=== PATIENT | male | born 1975 | race Caucasian/White ===

== ENCOUNTER 2022-09-01 17:00 | Emergency (ER) | payer OTHER, SELFPAY ==
--- NOTE | ~2022-09-01 | XR_ITS ---
EXAM: XR abdomen/kub 1V DATE: 09/01/2022 17:49 HISTORY: diarrhea . COMPARISON: None available. FINDINGS: Clear lung bases. Normal bowel gas pattern. No organomegaly. No abnormal abdominal calcifi cation. Regional bones and soft tissues normal for age. IMPRESSION: No radiographic evidence of obstruction or ileus. Reviewed, dictated and finalized at location K.
[2022-09-01 17:19] VITALS: BP 142/86; PULSE 91; RESP 18; TEMP 36.6; O2SAT 97
--- NOTE | 2022-09-01 17:23 | ED.GENADULT ---
HPI - General Adult General Chief complaint: Nausea/Vomiting/Diarrhea Stated complaint: diarrhea Time Seen by Provider: 09/01/22 17:23 Source: patient Mode of arrival: ambulatory Limitations: no limitations History of Present Illness HPI narrative: 47-year-old male patient [facility] complain of diarrhea for the last 5 days. Patient states he thinks he might have been some pain sec of causing diarrhea. patient denies any fevers, body aches or chills. Denies abdominal pain. Denies vomiting. Patient still able to take in food and stay hydrated. Patient urinating normally. Patient states that the diarrhea was getting better last couple days but felt like it was worse today. Denies denies any blood in the stool Related Data Home Medications Medication Instructions Recorded Confirmed atorvastatin 40 mg tablet (Lipitor) 40 mg PO DAILY 07/25/22 09/01/22 cetirizine 10 mg tablet (Zyrtec) 10 mg PO DAILY 07/25/22 09/01/22 montelukast 10 mg tablet 10 mg PO DAILY 07/25/22 09/01/22 (Singulair) omeprazole 40 mg capsule,delayed 40 mg PO DAILY 07/25/22 09/01/22 release Allergies Allergy/AdvReac Type Severity Reaction Status Date / Time No Known Allergies Allergy Verified 09/01/22 17:22 Review of Systems Review of Systems: CONSTITUTIONAL: Denies fever, chills, or sweats. EYES: Denies visual changes, redness, or discharge. ENT: Denies rhinorrhea, congestion, sore throat, or otalgia. CARDIOVASCULAR: Denies chest pain, palpitations, or edema. RESPIRATORY: Denies cough or dyspnea. GASTROINTESTINAL: Denies abdominal pain, nausea, vomiting, denies diarrhea. GENITOURINARY: Denies dysuria or hematuria. SKIN: Denies rash or itching. MUSCULOSKELETAL: Denies back pain, joint pain, or myalgia. NEUROLOGIC: Denies headache, numbness, or weakness. PSYCHIATRIC: Denies anxiety or depression. [facility] Past Medical History Medical History Family history of colon cancer Gastritis GERD (gastroesophageal reflux disease) History of adenomatous polyp of colon Hx of hemorrhoids Left-sided chest pain Obesity (BMI 30.0-34.9) Tobacco abuse Upper abdominal pain Social History Social History Smoking status: Current every day smoker Comments At the time of my signature I agree with nursing past medical history, surgical, social, and family history. There is no relevant family history pertinent to the presenting complaint. Exam Narrative: GENERAL: Well-appearing, well-nourished, and in no acute distress. HEAD: Normocephalic, atraumatic. EYES: PERRLA and EOMI. ENT: Nares clear, no rhinorrhea or epistaxis. Mucous membranes moist. NECK: Supple. No lymphadenopathy CHEST: Clear to auscultation. No respiratory distress. HEART: Regular rate and rhythm. No murmur heard. Normal peripheral pulses. ABDOMEN: Soft, flat, nondistended. No guarding, rebound tenderness, or rigid. No pulsatilla masses. hyperactiveBowel sounds present in all four quadrants. No organomegaly. Negative Adams?s sign. No periumbicial tenderness. No Supra public tenderness or distension. Good femoral pulses bilaterally. No hernia noted. No scars or surface trauma. EXTREMITIES: Normal range of motion. No edema. SKIN: Warm, dry, no rash. NEURO: No focal deficits. Alert and oriented x3. Course Course Level of Care: [facility] Visit Vital Signs Vital signs: Vital Signs Temperature 36.6 C 09/01/22 17:19 Pulse Rate 91 09/01/22 17:19 Respiratory Rate 18 09/01/22 17:19 Blood Pressure 142/86 H 09/01/22 17:19 Pulse Oximetry 97 09/01/22 17:19 Oxygen Delivery Room Air 09/01/22 17:19 Temperature 36.6 C 09/01/22 17:19 Pulse Rate 91 09/01/22 17:19 Respiratory Rate 18 09/01/22 17:19 Blood Pressure 142/86 H 09/01/22 17:19 Pulse Oximetry 97 09/01/22 17:19 Oxygen Delivery Room Air 09/01/22 17:19 Vital
== END 2022-09-01 18:08 | disposition home or self-care (01) ==
PROVIDERS: Emergency Provider Nurse Practitioner Family
DX: K52.9 Noninfective gastroenteritis and colitis, unspecified (principal); K21.9 Gastro-esophageal reflux disease without esophagitis; E66.9 Obesity, unspecified; Z68.30 Body mass index [BMI] 30.0-30.9, adult; F17.200 Nicotine dependence, unspecified, uncomplicated
CPT/HCPCS: 74018; 81003; 99213; G0463

== ENCOUNTER 2023-03-27 15:26 | Emergency (ER) | payer OTHER, SELFPAY ==
[2023-03-27 15:32] VITALS: BP 137/80; PULSE 85; RESP 18; TEMP 36.5; O2SAT 98
--- NOTE | 2023-03-27 15:41 | ED.GENADULT ---
HPI - General Adult General Chief complaint: Skin/Abscess/Foreign Body Stated complaint: Leg Irritation/Bump Source: patient, RN notes reviewed and old records reviewed Mode of arrival: ambulatory Limitations: no limitations History of Present Illness HPI narrative: 47-year-old male presents to [facility] with complaints bump to go left leg that he noted yesterday. Patient states of patient care follow up open up and drained. Related Data Home Medications Medication Instructions Recorded Confirmed atorvastatin 40 mg tablet (Lipitor) 40 mg PO DAILY 07/25/22 09/01/22 cetirizine 10 mg tablet (Zyrtec) 10 mg PO DAILY 07/25/22 09/01/22 montelukast 10 mg tablet 10 mg PO DAILY 07/25/22 09/01/22 (Singulair) omeprazole 40 mg capsule,delayed 40 mg PO DAILY 07/25/22 09/01/22 release Allergies Allergy/AdvReac Type Severity Reaction Status Date / Time No Known Allergies Allergy Verified 09/01/22 17:22 Review of Systems Constitutional: Constitutional: Reports no additional constitutional complaints, Denies body ache(s), Denies chills, Denies fatigue, Denies fever(s) and Denies headache(s) Eyes: Eyes: Reports no additional eye complaints and Denies blurry vision ENT: Reports system reviewed and no additional complaints, except as documented, Denies vertigo, Denies dizziness, Denies ear discharge, Denies otalgia, Denies facial pain, Denies headache(s), Denies nasal congestion, Denies nasal discharge, Denies sinus pain, Denies sinus pressure and Denies sore throat Cardiovascular: Cardiovascular: Reports no additional cardiovascular complaints, Denies chest pain, Denies chest pain at rest, Denies rapid heart rate and Denies dyspnea Respiratory: Respiratory: Reports no additional respiratory complaints, Denies chest congestion, Denies cough, Denies pain on inspiration, Denies pain with cough and Denies dyspnea Gastrointestinal: Gastrointestinal: Denies abdominal pain, Denies diarrhea, Denies nausea and Denies vomiting Integumentary/Breasts: Skin/Breast: Denies rash Comments: once the abscess to lower left leg Neurologic: Reports system reviewed and no additional complaints, except as documented, Denies vertigo, Denies dizziness and Denies headache(s) Endocrine: Endocrine: Denies fatigue PMFSH Past Medical History Medical History Family history of colon cancer Gastritis GERD (gastroesophageal reflux disease) History of adenomatous polyp of colon Hx of hemorrhoids Left-sided chest pain Obesity (BMI 30.0-34.9) Tobacco abuse Upper abdominal pain Social History Social History Smoking status: Current every day smoker Comments At the time of my signature, I reviewed and agree with the nursing past medical, surgical, social, and family history. There is no relevant family history pertinent to the patient complaint. Exam Const: General: cooperative, healthy appearing, no acute distress and well nourished Nutritional Appearance: well nourished Orientation/consciousness: patient oriented x3 Limitations: no limitations HENMT: Head: normal to inspection and normocephalic Ears: external ears normal, TM's normal bilaterally, mastoids normal and Abnormal EAC present Face/Nose/Sinus: normal facial exam Face and sinus: normal facial exam Mouth: Yes Normal oral and palatal mucosa present, Yes oropharynx normal and Yes moist mucous membranes Throat: tonsils normal, uvula midline and no uvular edema Eyes: General: appearance normal, both eyes and all related structures Sclera: sclerae normal Pupils: Equal, round and reactive pupils present Resp: Effort & Inspection: normal respiratory effort, able to speak in complete sentences, no audible wheezes, no cough, no respiratory distress and no retractions Skin: General skin exam: normal color Other: 1 cm abscess to left lower leg with clear drainage noted N
== END 2023-03-27 15:51 | disposition home or self-care (01) ==
PROVIDERS: Emergency Provider Registered Nurse
DX: L73.9 Follicular disorder, unspecified (principal); F17.200 Nicotine dependence, unspecified, uncomplicated; K21.9 Gastro-esophageal reflux disease without esophagitis; E66.9 Obesity, unspecified; Z68.29 Body mass index [BMI] 29.0-29.9, adult
CPT/HCPCS: 99213; G0463

== ENCOUNTER 2023-04-16 11:26 | Emergency (ER) | payer OTHER, SELFPAY ==
[2023-04-16 11:40] VITALS: BP 160/92; PULSE 118; RESP 18; TEMP 36.5; O2SAT 96
--- NOTE | 2023-04-16 11:58 | ED.SKABFB ---
HPI - Skin/Abscess/Foreign Bdy General Chief complaint: Skin/Abscess/Foreign Body Stated complaint: rash lt leg Source: patient Mode of arrival: ambulatory Limitations: no limitations History of Present Illness HPI narrative: 47 y/o male presented for c/o skin nodule to left lower leg. Pt was seen in our clinic for the same complaint on 03/27, stating it drained a large amount of pus and was improved after taking the prescribed course of Bactrim, but did not fully resolve. Now starting to become more red/swollen with a white head over the past 1-2 days. Denies pain or drainage at this time. Related Data Home Medications Medication Instructions Recorded Confirmed atorvastatin 40 mg tablet (Lipitor) 40 mg PO DAILY 07/25/22 09/01/22 cetirizine 10 mg tablet (Zyrtec) 10 mg PO DAILY 07/25/22 09/01/22 montelukast 10 mg tablet 10 mg PO DAILY 07/25/22 09/01/22 (Singulair) omeprazole 40 mg capsule,delayed 40 mg PO DAILY 07/25/22 09/01/22 release Allergies Allergy/AdvReac Type Severity Reaction Status Date / Time tramadol AdvReac Nausea and Verified 04/16/23 11:37 Vomiting Review of Systems Review of Systems: CONSTITUTIONAL: Denies body aches, fever, chills, or sweats. CARDIOVASCULAR: Denies chest pain, palpitations, or edema. RESPIRATORY: Denies cough or dyspnea. GASTROINTESTINAL: Denies abdominal pain, nausea, vomiting, or diarrhea. SKIN: reports skin nodule left leg MUSCULOSKELETAL: Denies back pain, joint pain, or myalgia. NEUROLOGIC: Denies headache PMFSH Past Medical History Medical History Family history of colon cancer Gastritis GERD (gastroesophageal reflux disease) History of adenomatous polyp of colon Hx of hemorrhoids Left-sided chest pain Obesity (BMI 30.0-34.9) Tobacco abuse Upper abdominal pain Social History Social History Smoking status: Current every day smoker Comments At time of signature, I have reviewed and agree with nursing past medical, surgical, social and family history unless otherwise noted. Please see nursing chart for further information. There is no relevant family history pertinent to the presenting complaint Exam Narrative: GENERAL: Well-appearing HEAD: Normocephalic, atraumatic. EYES: conjunctivae clear, and EOMI. ENT: Mucous membranes moist. CHEST: Respirations even, unlabored. SKIN: Warm, dry. Left lateral lower leg with approx 1cm diameter firm subcutaneous nodule, mild erythema to surface with approx 3mm white/light area surrounding hair follicle; nonfluctuant, no active drainage; nontender no induration. NEURO: Alert and oriented x3. Course Course Emergency Course: Patient is aware of diagnosis, understands and agrees to treatment plan. Anticipatory guidance given. Patient agrees to follow-up as directed and is aware of reasons to seek care at the emergency department. Portions of this record may have been created with voice recognition software Level of Care: [facility] Visit Vital Signs Vital signs: Vital Signs Temperature 97.7 F 04/16/23 11:40 Pulse Rate 118 H 04/16/23 11:40 Respiratory Rate 18 04/16/23 11:40 Blood Pressure 160/92 H 04/16/23 11:40 Pulse Oximetry 96 04/16/23 11:40 Oxygen Delivery Room Air 04/16/23 11:40 Temperature 97.7 F 04/16/23 11:40 Pulse Rate 118 H 04/16/23 11:40 Respiratory Rate 18 04/16/23 11:40 Blood Pressure 160/92 H 04/16/23 11:40 Pulse Oximetry 96 04/16/23 11:40 Oxygen Delivery Room Air 04/16/23 11:40 Reviewed MDM - Skin/Abscess/Foreign Bdy MDM Narrative Medical decision making narrative: Discussed physical exam findings with pt; the site is firm and I&D not indicated at this time. Reviewed Rx with pt, advised close f/u with pcp or derm. Advised supportive measures and signs/symptoms to go to the ER. Pt is appropriate for outpt treatment and f/u. v/
== END 2023-04-16 12:20 | disposition home or self-care (01) ==
PROVIDERS: Emergency Provider Nurse Practitioner Family
DX: L73.9 Follicular disorder, unspecified (principal); F17.200 Nicotine dependence, unspecified, uncomplicated; K21.9 Gastro-esophageal reflux disease without esophagitis; E66.9 Obesity, unspecified; Z68.29 Body mass index [BMI] 29.0-29.9, adult
CPT/HCPCS: 99213; G0463

== ENCOUNTER 2023-05-26 19:00 | Emergency (ER) | payer OTHER, SELFPAY ==
[2023-05-26 19:08] VITALS: BP 148/91; PULSE 98; RESP 14; TEMP 36.2; O2SAT 97
--- NOTE | 2023-05-26 19:20 | ED.GENADULT ---
HPI - General Adult General Chief complaint: Wound/Laceration Stated complaint: Cyst on Left Leg Source: patient, RN notes reviewed and old records reviewed Mode of arrival: ambulatory Limitations: no limitations History of Present Illness HPI narrative: 48-year-old male to [facility] with complaint of nonhealing wound to left anterior lower leg. Patient had cyst removed 13 days ago and had sutures removed 4 days ago. Patient endorsing increased pain, swelling and redness at wound site. Patient denies fever, numbness, or tingling to left lower extremity or foot. Related Data Home Medications Medication Instructions Recorded Confirmed atorvastatin 40 mg tablet (Lipitor) 40 mg PO DAILY 07/25/22 05/26/23 cetirizine 10 mg tablet (Zyrtec) 10 mg PO DAILY 07/25/22 05/26/23 montelukast 10 mg tablet 10 mg PO DAILY 07/25/22 05/26/23 (Singulair) omeprazole 40 mg capsule,delayed 40 mg PO DAILY 07/25/22 05/26/23 release Allergies Allergy/AdvReac Type Severity Reaction Status Date / Time tramadol AdvReac Nausea and Verified 05/26/23 19:23 Vomiting Review of Systems Review of Systems: All systems reviewed & are unremarkable except as noted in HPI and below Constitutional: Constitutional: Reports as per HPI and Denies fever(s) Eyes: Eyes: Reports no additional eye complaints ENT: Reports system reviewed and no additional complaints, except as documented Cardiovascular: Cardiovascular: Reports no additional cardiovascular complaints, Denies chest pain and Denies dyspnea Respiratory: Respiratory: Reports no additional respiratory complaints, Denies cough and Denies dyspnea Gastrointestinal: Gastrointestinal: Denies nausea Musculoskeletal: Musculoskeletal: Reports no additional musculoskeletal complaints Integumentary/Breasts: Skin/Breast: Reports wounds (left anterior lower leg) Neurologic: Reports system reviewed and no additional complaints, except as documented Psychiatric: Psychiatric: Reports no additional psychiatric complaints [facility] Past Medical History Medical History Family history of colon cancer Gastritis GERD (gastroesophageal reflux disease) History of adenomatous polyp of colon Hx of hemorrhoids Left-sided chest pain Obesity (BMI 30.0-34.9) Tobacco abuse Upper abdominal pain Social History Social History Smoking status: Current every day smoker Comments At the time of my signature, I reviewed and agree with the nursing past medical, surgical, social, and family history. There is no relevant family history pertinent to the patient complaint. Exam Const: General: cooperative, healthy appearing, comfortable, no acute distress, alert and well nourished Nutritional Appearance: well nourished Orientation/consciousness: patient oriented x3 Limitations: no limitations HENMT: Head: normal to inspection Ears: external ears normal Face/Nose/Sinus: Normal external nose present, Normal nares present, normal facial exam, No erythema and No edema Face and sinus: normal facial exam, no erythema and no edema Mouth: Yes Normal oral and palatal mucosa present Eyes: General: appearance normal, both eyes and all related structures Neck: Neck: normal visual inspection, full ROM and no meningeal signs Lymphatic: no lymphadenopathy noted and no lymphedema noted Chest: Chest palpation & inspection: normal inspection of the chest Resp: Effort & Inspection: normal respiratory effort and able to speak in complete sentences Auscultation: clear to auscultation bilaterally Cardio: Jugular venous distension: no JVD Rate: regular rate Rhythm: regular rhythm Back/Spine/Pelvis: Cervical Spine: cervical ROM normal Skin: General skin exam: wounds noted (left anterior lower leg 2.5cm) Other: patient had cyst removed 2 days ago. Had stitches removed 5 days ago. Erythematous,
== END 2023-05-26 19:34 | disposition home or self-care (01) ==
PROVIDERS: Emergency Provider Nurse Practitioner Family
DX: T81.40XA Infection following a procedure, unspecified, initial encounter (principal); L03.116 Cellulitis of left lower limb; K21.9 Gastro-esophageal reflux disease without esophagitis; E66.9 Obesity, unspecified; Z68.30 Body mass index [BMI] 30.0-30.9, adult; F17.200 Nicotine dependence, unspecified, uncomplicated
CPT/HCPCS: 99213; G0463

== ENCOUNTER 2025-01-15 19:15 | Emergency (ER) | payer OTHER, SELFPAY ==
--- OUTSIDE RECORDS SUMMARY | 2025-01-15 19:16 | XMS_ITS | Clinical Summary ---
Author Organization [facility] ([place], [place]) Address [address] [place] [address] Care Team Providers Care Acrobatic Dancer Name Role Phone [facility] Care Provider [phone] Andrew Cortez MD Unavailable [phone] Allergies Active Allergy Reactions Criticality Noted Date Comments Tramadol Dizziness Low 03/16/2020 Dizziness/Light Headed Medications atorvastatin (LIPITOR) 20 mg tablet 03/15/2021 Active omeprazole (PriLOSEC) 40 mg capsule 03/15/2021 Active cetirizine (ZyrTEC) 10 mg capsule Zyrtec Active montelukast (SINGULAIR) 10 mg tablet 07/05/2021 Active meloxicam (MOBIC) 15 mg tabletIndication s:Chronic pain of right knee,Anterior medial rotary instability, unspecified laterality Take 1 tablet (15 mg total) by mouth daily 30 tablet 3 04/21/2024 Active january.stocking ,knee,reg,smal miscIndications: Bilateral calf pain,Acute bilateral knee pain Use as directed. 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 07/11/2021 Other intervertebral disc displacement, lumbar r egion 05/08/2021 Spondylolisthesis of lumbar region 05/08/2021 Allergic rhinitis 12/05/2015 Overview (07/11/2021): ICD-10 update 2015 Sensorineural hearing loss 06/02/2015 Tinnitus 06/02/2015 Resolved Problems Problem Noted Date Diagnosed Date Resolved Date Obstructive sleep apnea of adult 07/11/2021 01/13/2024 Immunizations Immunization Administration Dates Next Due Influenza, Quadrivalent, Megan l Culture-based MDCK, Preservative Free, Antibiotic Free, Intramuscular 12/27/2019 Influenza, Quadrivalent, Split, Intramuscular Influenza, Quadrivalent, Spl it, Preservative Free, Intramuscular 11/30/2020 Surgical History Surgery Date Site/Laterality Comments KNEE SURGERY Right Torn Meniscous WISDOM TOOTH EXTRACTION 02/24/1997 - 02/23/1998 Medical History Medical History Date Comments Ear problems Disc disorder of lumbar region Osteoarthritis High cholesterol GERD (gastroesophageal reflux disease) Obstructive sleep apnea of adult 07/11/2021 Narcolepsy idiopathic hyper somnolence Motion sickness Allergic rhinitis Family History Medical History Relation Name Comments Heart disease Father Cancer Maternal Grandfather Diabetes Maternal Grandfather Heart disease Paternal Grandfather Relation Name Status Comments Father Maternal Grandfather Paternal Grandfather Social History Tobacco Use Types Packs/Day Years Used Date Smoking Tobacco: Every Day Cigarettes Smokeless Tobacco: Never Tobacco Cessation:Ready to Q uit: Not Asked; Counseling Given: Not Answered AUDIT-C Answer Date Recorded Q1: How often do you have a drink containing alc ohol? 2-4 times a month 01/27/2024 Q2: How many drinks containi ng alcohol do you have on a typical day when you are drinking? 1 or 2 01/27/2024 Q3: How often do you have si x or more drinks on one occasion? Never 01/27/2024 Personal Safety Answer Date Recorded Have you ever been in or are you currently in a harmful physical or emotional relationship or is someone making you feel afraid or unsafe? Denies 01/27/2024 Sex and Gender Information Value Date Recorded Sex Assigned at Not on file Legal Sex Male 8:33 PM SOCIOLOGY PROFESSOR Gender Identity Not on file Sexual Orientation Not on file Last Filed Vital Signs Vital Sign Reading Time Taken Comments Blood Pressure 136/90 01/27/2024 2:55 PM SOCIOLOGY PROFESSOR Pulse 94 01/27/2024 2:55 PM SOCIOLOGY PROFESSOR Temperature 37 C (98.6 F) 01/27/2024 2:25 PM SOCIOLOGY PROFESSOR Respiratory Rate 16 01/27/2024 2:55 PM SOCIOLOGY PROFESSOR Oxygen Saturation 95% 01/27/2024 2:55 PM SOCIOLOGY PROFESSOR Inhaled Oxygen Concentration - - Weight 103.4 kg (228 lb) 04/21/2024 1:37 PM SOCIOLOGY PROFESSOR Height 180.3 cm (5' 11) 04/21/2024 1:37 PM SOCIOLOGY PROFESSOR Body Mass Index 31.8 04/21/2024 1:37 PM SOCIOLOGY PROFESSOR Plan of Treatment Health Maintenance Due Date Last Done Comments Colon Cancer Screening-Colonoscopy 1977 Depression Screening 1977 Hepatitis C Screening 1977 Regular Well Visit/Exam 18-64 05/03/1995 Pneumococcal vaccine <65 (1 of 2 - PCV) 1996 Covid-19 Vaccine (5 - 2024-2 6 season) 2024 01/25/2021, 12/23/2020, 06/06/2020, Additional history exists Influenza Vaccine (#1) 2024 , 01/31/2022, 11/30/2020, Additional history exists DTaP/Tdap/Td Vaccine (3 - Td or Tdap) 12/27/2026 12/27/2016, 12/16/2006, 11/12/1996 Hepatitis B Screening Completed 11/16/2009 , 06/27/2009, 05/25/2009 Medical Devices Implanted Type Area Wire Dropper Device Identifier Shelf Expiration Date Model / Serial / Lot [employer] Graft Ligament Patella Regn Knee Frozen [id number] - [id number] - [id number] Implanted:Qty: 1 on 01/27/2024 by Andrew Cortez MD at [facility] [employer] 11/25/2028 [id number] / [id number] / [id number] [employer] 8mm 20mm Cannulated Sheath Acl Pcl Screw Interference Titanium [id number] - [id number] Implanted:Qty: 1 on 01/27/2024 by Andrew Cortez MD at [facility] Right: Knee [employer] [id number] 06/23/2028 [id number] / / [id number] [employer] Bio-Interference 9mm 20mm Cannulated Acl Pcl Screw Interference Ar-[id number] - [id number] Implanted:Qty: 1 on 01/27/2024 by Andrew Cortez MD at [facility] Right: Knee [employer] [id number] 04/23/2028 [id number] / / [id number] Insurance [facility] Care Teams Acrobatic Dancer Relationship Specialty Start Date End Date [facility] [address] [place] [address] PCP - General 12/31/23 Andrew Cortez MD [address] [place] [address] Consulting Physician Orthopedic Surgery 01/27/24
--- OUTSIDE RECORDS SUMMARY | 2025-01-15 19:16 | XMS_ITS | Encounter Summary ---
Author Organization [facility] Address [address] [facility] [place] [address] Care Team Providers Care Virtualization Architect Name Role Phone Man Barry PA-C Primary Care Provider [phone] Encounter Details Date Type Department Care Team (Late st Contact Info) Description 07/03/2023 Lab Requisition [facility] - DermPath Lab [address] [place] [id number] Sb Verduzco MD [address] [place] [address] Social History Tobacco Use Types Packs/Day Years Used Date Smoking Tobacco: Every Day Cigarettes Smokeless Tobacco: Never Alcohol Use Standard Drinks/Week Comments Yes 1.7 (1 standard drink = 0.6 oz p ure alcohol) Sex and Gender Information Value Date Recorded Sex Assigned at Not on file 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 Gender Identity Not on file Sexual Orientation Not on file documented as of this encounter Plan of Treatment Not on file documented as of this encounter Procedures Procedure Name Priority Date/Time Associated Diagnosis Comments DERMATOPATHOLOGY Routine 07/01/2023 12:0 0 AM CDT documented in this encounter Results * DERMATOPATHOLOGY (07/01/2023 12:00 AM CDT) Case Report Dermatopathology Report Case: [id number] Authorizing Provider: Sb Verduzco MD Collected: 07/01/2023 12:00 AM Ordering Location: [facility] - Received: 07/03/2023 10:58 AM DermPath Lab Pathologist: Scott Hammond MD Specimen: Skin, right waist 2:12 PM CDT DERMATOPATHOLOGY LABORATORY Final Diagnosis Specimen A. SKIN, right waist: INTRADERMAL MELANOCYTIC NEVUS (D22.5) 4 2:12 PM CDT DERMATOPATHOLOGY LABORATORY at 1412 CDT Clinical History Irr. Nevus 2:12 PM CDT DERMATOPATHOLOGY LABORATORY Gross Description Specimen A: Received is one formalin filled container labeled with the patients name and designated right waist. The specimen consists of a shave removal measuring 5x4x1 mm. Jar 0. 2:12 PM CDT DERMATOPATHOLOGY LABORATORY Microscopic Description Specimen A. SKIN, right waist: There are nests of cytologically bland melanocytes within the dermis that mature with depth. 2:12 PM CDT DERMATOPATHOLOGY LABORATORY Disclaimer An external and internal positive and negative controls are appropriate for the histochemical, immunohistochemical and immunofluorescence stain(s) in this case (if any), except where stated explicitly. The performance characteristics of the stain(s) cited in this report were developed and its performance characteristic determined by the Dermatopathology Laboratory at [facility], directed by Dr. Gianluca Hammond. These tests need not be, and therefore are not, approved by the [place] Food and Drug Administration. The tests are used for clinical purposes. Billing Codes Specimen Charges Stain Charges 27785 1 2:12 PM CDT DERMATOPATHOLOGY LABORATORY Embedded Images 2:12 PM CDT DERMATOPATHOLOGY LABORATORY Pathology/Cytolog y TISSUE SPECIMEN FROM SKIN / Unknown 07/01/2023 07/03/2023 10:58 AM CDT us Sb Verduzco MD LAB - PATHOLOGY/CYTOLOGY ORDERAB LES Final Result DERMATOPATHOLOGY LABORATORY [facility] - Department of Dermatology [address] [place] [address], [facility] [phone] documented in this encounter Visit Diagnoses Not on filedocumented in this encounter Care Teams Virtualization Architect Relationship Specialty Start Date End Date Man Barry PA-C [address] [place] [address] [place] [address] PCP - General 05/25/15 documented as of this encounter
--- OUTSIDE RECORDS SUMMARY | 2025-01-15 19:16 | XMS_ITS | Clinical Summary ---
Author Organization [facility] Address [address] [place] [address] Care Team Providers Care Certified Fraud Examiner Name Role Phone Man Barry PA-C Primary Care Provider [phone] Source Comments [facility],non-owned Affiliates and Associated Physician Practices is amultiple site organization consisting of ambulatory clinics and hospital sitesin [place], [place], [place] and [place]. This disclosure is being madepursuant to the Care Everywhere program and may not contain all information available regarding this patient. Last updated 17.[facility] Allergies No known active allergies Medications * Be aware that medications may not be up to date on this document. Alwaysverify current medications with the patient. azelastine (ASTELIN) 0.1 % nasal spray 1 spray BID. 1 bottles 11 10/09/2015 Active montelukast (SINGULAIR) 10 MG tablet Take 10 mg by mouth DAILY. 30 tablet 11 10/09/2015 Active cetirizine (ZYRTEC) 10 MG tablet Take 10 mg by mouth DAILY. 30 tablet 11 10/09/2015 Active cyclobenzaprine (FLEXERIL) 10 MG tablet Take 1 tablet by mouth 3 times daily as needed for Muscle Spasms 30 tablet 01/28/2019 Active HYDROcodone-acet aminophen (NORCO) 5-325 MG tablet Take 1 tablet by mouth every 6 hours as needed for Pain 12 tablet 01/28/2019 Active Active Problems Problem Noted Date Diagnosed Date Allergic rhinitis 12/05/2015 Overview (05/26/2017): ICD-10 update 2015 Sensorineural hearing loss 06/02/2015 Tinnitus 06/02/2015 Family History Medical History Relation Name Comments Heart Disease Father Arthritis - Rheumatoid Mother Diabetes Mother Hearing Loss Mother High Cholesterol Sister Relation Name Status Comments Father Mother Sister Social History Tobacco Use Types Packs/Day Years Used Date Smoking Tobacco: Every Day Cigarettes Smokeless Tobacco: Never Alcohol Use Standard Drinks/Week Comments Yes 1.7 (1 standard drink = 0.6 oz p ure alcohol) Sex and Gender Information Value Date Recorded Sex Assigned at Not on file 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 Gender Identity Not on file Sexual Orientation Not on file Last Filed Vital Signs Vital Sign Reading Time Taken Comments Blood Pressure 129/80 01/28/2019 1:18 PM CENTERLESS GRINDING MACHINE ADJUSTER Pulse 80 01/28/2019 1:18 PM CENTERLESS GRINDING MACHINE ADJUSTER Temperature 36.4 C (97.5 F) 01/28/2019 1:18 PM CENTERLESS GRINDING MACHINE ADJUSTER Respiratory Rate 16 01/28/2019 1:18 PM CENTERLESS GRINDING MACHINE ADJUSTER Oxygen Saturation 99% 01/28/2019 1:18 PM CENTERLESS GRINDING MACHINE ADJUSTER Inhaled Oxygen Concentration - - Weight 81.6 kg (180 lb) 06/28/2015 10:13 AM CDT Height 180.3 cm (5' 11) 06/28/2015 10:13 AM CDT Body Mass Index 25.1 06/28/2015 10:13 AM CDT Plan of Treatment Health Maintenance Due Date Last Done Comments COLOGUARD (AGES 45-75) - COLON CA SCREENING 1977 COLON MONITORING 1977 COLONOSCOPY - COLON CA SCREENING 1977 CT COLONOGRAPHY - COLON CA SCREENING 1977 Colorectal Cancer Screening 1977 FIT - COLON CA SCREENING 1977 FLEX SIG - COLON CA SCREENING 1977 LIPID TESTING 1977 HIV SCREENING 1992 HEPATITIS C SCREENING 04/28/1995 DTAP/TDAP/TD VACCINES (1 - Tdap) 1996 HEPATITIS B VACCINE (1 of 3 - 19+ 3-dose series) 1996 PNEUMOCOCCAL VACCINE (1 of 2 - PCV) 1996 DEPRESSION SCREENING 02/25/2024 COVID-19 VACCINE (1 - 2024- season) 2024 INFLUENZA VACCINE (#1) 2024 8, 12/27/2016, 12/20/2015, Additional history exists ZOSTER VACCINE (1 of 2) 05/03/2027 HIB VACCINE Aged Out No longer eligi ble based on patient's age to complete this topic HPV VACCINE Aged Out No longer eligi ble based on patient's age to complete this topic MENINGOCOCCAL (Group B) VACCINE SHARED DECISION-MAKING Aged Out No longer eligible based on patient's age to complete this topic MENINGOCOCCAL GROUPS A/C/Y/W VACCINE Aged Out No longer eligible based on patient's age to complete this topic Insurance Care Teams Certified Fraud Examiner Relationship Specialty Start Date End Date Man Barry PA-C [facility] [place] [address] PCP - General 05/25/15
--- OUTSIDE RECORDS SUMMARY | 2025-01-15 19:17 | XMS_ITS | Clinical Summary ---
Author Organization [facility] Address [facility] [place] [address] Care Team Providers Care Trolley Car Mechanic Name Role Phone Darrick Rodriguez MD Primary Care Provider [phone] Allergies Active Allergy Reactions Criticality Noted Date Comments Tramadol Dizziness Low 03/16/2020 Dizziness/Light Headed Medications Cetirizine HCl (ZYRTEC ALLERGY) 10 MG Cap Zyrtec Active atorvastatin 20 MG tablet 03/15/2021 Active Cetirizine HCl (ZYRTEC ALLERGY) 10 MG Cap Take 1 capsule by mouth daily. Active cyclobenzaprine 10 MG tablet Take 10 mg by mouth. 04/27/2021 Active diazePAM 5 MG tablet 04/30/2021 Active HYDROcodone-hector taminophen 7.5-325 MG tablet 05/03/2021 Active lidocaine 5 % APPLY ONE PATCH TO SKIN DAILY - APPLY FOR 12 HOURS, THEN REMOVE & DISCARD 12 HOURS 04/27/2021 Active naproxen 500 MG tablet Take 500 mg by mouth 2 (two) times daily with meals. 04/29/2021 Active omeprazole 40 MG capsule 03/15/2021 Active Active Problems Problem Noted Date Diagnosed Date Spinal stenosis of lumbar re gion without neurogenic claudication 05/08/2021 Radiculopathy, lumbar region 05/08/2021 Other intervertebral disc displacement, lumbar r egion 05/08/2021 Other intervertebral disc degeneration, lumbar r egion 05/08/2021 Spondylolisthesis of lumbar region 05/08/2021 Foraminal stenosis of lumbar region 05/08/2021 Social History Tobacco Use Types Packs/Day Years Used Date Smoking Tobacco: Every Day Cigarettes Passive Smoke Exposure: Current Smokeless Tobacco: Never Tobacco Cessation:Ready to Q uit: Not Asked; Counseling Given: Not Answered Alcohol Use Standard Drinks/Week Comments Yes 0 (1 standard drink = 0.6 oz pur e alcohol) Socially Sex and Gender Information Value Date Recorded Sex Assigned at Not on file Legal Sex Male 11:12 PM CDT Gender Identity Not on file Sexual Orientation Not on file Last Filed Vital Signs Vital Sign Reading Time Taken Comments Blood Pressure 131/90 06/27/2022 7:25 PM CDT Pulse 78 06/27/2022 7:25 PM CDT Temperature 36.3 C (97.3 F) 06/27/2022 7:25 PM CDT Respiratory Rate 16 06/27/2022 7:25 PM CDT Oxygen Saturation 98% 06/27/2022 7:25 PM CDT Inhaled Oxygen Concentration - - Weight 95.3 kg (210 lb) 06/27/2022 7:25 PM CDT Height 180.3 cm (5' 11) 06/27/2022 7:25 PM CDT Body Mass Index 29.29 06/27/2022 7:25 PM CDT Plan of Treatment Health Maintenance Due Date Last Done Comments Colorectal Cancer Screening Colonoscopy (10 Years) 1977 Annual Physical 1980 Hepatitis C 05/03/1995 DTaP, Tdap and Td Vaccines (1 - Tdap) 1996 Hepatitis B Vaccines (1 of 3 - 19+ 3-dose series) 1996 Pneumococcal Vaccine: Pediatrics (0 to 5 Years) and At-Risk Patients (6 to 49 Years) (1 of 2 - PCV) 1996 COVID-19 Vaccine ( - season) 2024 01/25/2021, 12/23/2020, 06/06/2020, Additional history exists Influenza Adult (#1) 2024 11/30/2020, 12/27/2019, 01/23/2019 Hepatitis A Vaccines Aged Out No long er eligible based on patient's age to complete this topic Meningococcal B Vaccine Aged Out No l onger eligible based on patient's age to complete this topic Meningococcal Vaccine Aged Out No flor yadira eligible based on patient's age to complete this topic RSV Immunizations Under 20 Months Aged Out No longer eligible based on patient's age to complete this topic Insurance Care Teams Trolley Car Mechanic Relationship Specialty Start Date End Date Darrick Rodriguez MD [address] [id number] PCP - General FAMILY PRACTICE 05/02/21
--- OUTSIDE RECORDS SUMMARY | 2025-01-15 19:19 | XMS_ITS | Data Portability ---
Author Organization [place] - [facility]/Bernice BERNARDO SI 11) Address [address] [facility] [address] [place] [address] Care Team Providers Care Payroll Specialist Name Role Phone BARBER PEDRO Referring Provider Assessment Encounter Date Assessment Date Assessment LastModified by Organization Details LastModified Time 11/22/2014 11/22/2014 Patient had a sleep study in the [facility] in [place] he was told he did not have sleep apnea. He has excessive daytime sleepiness and fatigue. We will have to rule out narcolepsy or idiopathic hypersomnia. I will also review the sleep study from [facility]. We will plan on polysomnography with MSLT. [email or web address] Not available 11/22/2014 14:47:17 03/15/2015 03/15/2015 Patient says the medication helps him to stay awake during the day. He feels that those maybe a little too high so we will degrade it to 18 mg in the morning. His has also told him he snores loud nowso he may need home sleep testing for sleep apnea. He did not have sleep apnea during the first testing. He will talk to his and call me to arrange home sleep study. [email or web address] Not available 03/15/2015 14:27:08 07/19/2016 07/19/2016 Patient is doing well with his current medication. If he doesn't have to do anything he skips the medicine sometimes. It does help him to stay awake when the needed. I have told him to watch his blood pressure. I'll see him back in one year. [email or web address] Not available 07/19/2016 12:09:05 Plan of Treatment Reminders Order Date Submit Date Provider Last Modified By Organization Details Last Modified Time Details Appointments None record ed. Lab None record ed. Referral None record ed. Procedures None record ed. Surgeries None record ed. Imaging None record ed. Medication Orders None record ed. Patient TargetsNo targets recorded. Patient Instructions Encounter Date Encounter Id Patient Instructions Last Modified By Organization Details Last Modified Time 11/22/2014 [id number] sleep study, polysomnogram with multiple sleep latency test* [email or web address] Not available 02/25/2015 11:13:28 narcolepsy: care instructions [email or web address] Not available 02/25/2015 11:10:02 Reason for Referral None Reported. Problems Name Problem SNOMED Code Status Onset Date Resolution Date Notes Provider Name and Address Organization Details Recorded Time Obstructive sleep apnea of adult 5710094609587 Active Carmen hand [place] - [facility] 5 12:59:38 Daytime somnolence 199829245310 Active JO ALMANZA MD, GARY, F.C.C.P. NPI [id number] [address] [place] [address], [phone], [place] - [facility] 5 14:47:17 Idiopathic hypersomnia without long sleep time 319898987 Active JO ALMANZA MD, GARY, F.C.C.P. NPI [id number] [address] [place] [address], [phone], [place] - [facility] 6 14:27:08 Narcolepsy 38705471 Active Carmen hand, [place] - [facility] 5 16:55:09 Problem Notes None recorded. Procedures Surgical History Date Name Laterality Status Provider Name and Address Organization Details Recorded Time 01/23/2015 Sleep Study completed JO ALMANZA MD, GARY, F.C.C.P. [address] [place] [address], [phone], [place] - [facility] 01/25/2015 12:24:01 Imaging Results None recorded. Procedure Notes None recorded. Medical Equipment None Reported. Allergies No known drug allergies Medications Name Sig Start Date Stop Date Status Note LastModified by Organization Details LastModified Time Concerta 18 mg tablet,ext ended release One QAM for Idiopathic Hypersomnia 2017 active Not Available Not Available Not Avai lable Concerta 36 mg tablet,ext ended release One Q. a.m. for idiopathic hypersomnia active Not Available Not Available Not Available Zyrtec active Not Available Not Availa ble Not Available Nexium active Not Available Not Availa ble Not Available Flonase Allergy Relief active Not Available Not Available Not Available Vitals Date Recorded Body mass index (BMI) Body height Body weight Heart rate Oxygen saturation Respiratory rate Systolic And Diastolic Provider Name and Address Organization Details Last Updated DateTime 6 25.1 kg/m2 180.34 cm 66551.6 266 g 90 /min 97 % 16 /min 120/80 mm[Hg] JO ALMANZA MD, GARY, F.C.C.P. NPI [id number] [address] [place] [address]/[facility] 6 14:24:57 Date Recorded Body height Body weight Body mass index (BMI) Oxygen saturation Heart rate Respiratory rate Systolic And Diastolic Provider Name and Address Organization Details Last Updated DateTime 7 180.34 cm 58429.5 9 g 25.8 kg/m2 97 % 85 /min 16 /min 120/90 mm[Hg] JO ALMANZA MD, GARY F.C.C.P. NPI [id number] [address] [place] [phone] [place] [address]/KV/[facility] 7 12:06:10 Date Recorded Respiratory rate Body weight Oxygen saturation Heart rate Body mass index (BMI) Body height Systolic And Diastolic Provider Name and Address Organization Details Last Updated DateTime 5 16 /min 43357.8 1134 g 98 % 68 /min 25.4 kg/m2 180.34 cm 110/80 mm[Hg] JO ALMANZA MD, GARY F.C.C.P. NPI [id number] [address] [place] [address] [place], [phone], [place] - [facility] 5 14:44:12 Date Recorded Body height Body mass index (BMI) Body weight Provider Name and Address Organization Details Last Updated DateTime 01/22/2015 180.34 cm 25.4 kg/m2 82293.8113 4 g Keisha Rhodes [facility] 01/22/2015 20:34:19 Social History Question Answer Notes LastModified by Organizat ion Details LastModified Time Tobacco Smoking Status Current Every Day Smoker JO ALMANZA MD, GARY, F.C.C.P. [address] [facility] [address], [place], [address], [facility]/K[facility] 11/22/2014 14:44:12 What Is Your Level Of Caffeine Consumption? Moderate Information not available 11/22/2014 Marital Status Informatio n not available 11/22/2014 How Many Children Do You Have? 1 Information not available 11/22/2014 How Much Tobacco Do You Smoke? 0.5 PPD Information not available 11/22/2014 Sex: Unknown Functional Status Question Answer Note LastModified by Organizat ion Details LastModified Time What is your level of alcohol consumption? Occasional Information not available 11/22/2014 Mental Status None recorded. Family History Relationship Description Onset Age of this Age Resolved Age Notes LastModified by Organization Details LastModified Time Mother Sleep apnea [email or web address] Not availabl e 03/15/2015 14:16:16 Father Sleep apnea khegde Not availabl e 03/15/2015 14:16:16 Medical History Condition Response Acid Reflux (GERD) Y Allergies/Hayfever Y Past Encounters Encounter ID Performer Location Encounter Start Date Encounter Closed Date Diagnosis/Indication Diagnosis SNOMED-CT Code Diagnosis ICD10 Code Diagnosis IMO Codes Diagnosis Note [id number] JO ALMANZA MD, GARY, F.C.C.P. [facility] (11) [address] [facility] [address] [place] [address] 11/22/2014 13:44:58 11/22/2014 15:04:46 Obstructive sleep apnea of adult 6918169595 103 Daytime somnolence 19381 [address]60 00 Idiopathic hypersomnia without long sleep time 428911788 Narcolepsy 71025348 22017 [facility] [place], [facility] 11) [address] [facility] [address] [place] [address] 01/23/2015 20:56:19 01/24/2015 13:00:07 Obstructive sleep apnea of adult 2006603970 103 G47.33 [id number] [facility] [facility]ate[facility] [place], [facility] (11) [address] [facility] [address] [place] [address] 01/24/2015 16:54:33 01/24/2015 16:55:34 Narcolepsy 77064798 G47.419 [id number] JO ALMANZA MD, GARY, F.C.C.P. [facility] () [address] [place] [address] 03/15/2015 13:41:36 03/15/2015 14:48:04 Idiopathic hypersomnia without long sleep time 855241076 G47.12 [id number] JO ALMANZA MD, GARY, F.C.C.P. [facility] () [address] [place] [address] 07/19/2016 11:30:10 07/19/2016 13:44:55 Idiopathic hypersomnia without long sleep time 011136157 G47.12 Health Concerns Section Related Observation LastModified by Organization Detai ls LastModified Time None Recorded Concern Status LastModified by Organization Details LastModified Time None Recorded Advance Directives Directive None Recorded Payers Insurance Date Sequence Insurance Name Policy Number Policy Yanes Covered Member ID Yanes Member ID Guarantor Name 07/14/2017 1 [facility] Andrew Casper [id number] Andrew Casper Notes Date Note Type Note Provider Name and Address Organization Details Recorded Time 01/24/2015 text/plain Patient had a polysomnography with MSLT. He's mean sleep latency is 11.6 minutes. There was only one REM out of fire naps. So he has idiopathic hypersomnia. I will start him on Concerta 36 mg in the morning. I will see him back in one month. JO ALMANZA MD, DAB, F.C.C.P. I [phone] [facility] [address], [place], [address], [facility] - [facility] 01/24/2015 18:06:13 11/22/2014 text/html Sleep History-Re ported by PatientHPIFor the patient presents with chief complaint of, patient reportssleepiness,snor ing, andwitnessed sleep apnea. For it is stated that, patient reportshe goes to bed around 9.30-10.30 pmandusually falls asleep within 30 min. For the patient arises in the morning feeling, patient reportsgroggy,at approximately 6 am, andunrefreshed. For awakening at night, patient reportsoccurs due to,nocturia, andapproximately 1 per/night. For the patient, patient reportsdoes snoreandsnoring is reported to be constant. For witnessed apneas, gasping for breath, patient reportshave been noted. For the patient is, patient reportscurrently working asandduring the day he is alert when active but sleepy and fatigued during quiet or boring activities. For the patient reports that, patient reportshe sometimes needs to fight to stay awake. For during quiet activities (e.g. reading, watching tv), patient reportsthe patient nods off,there is a history of napping, and3 naps per month are reported. For during driving, patient reportsand has not nodded off while drivingandthere have not been fall asleep accidents. For the epworth sleepiness, patient reportsscore is 13 (normal is less than 10). For the patient, patient reportsthe patient is awakens with morning headaches about 2 times per week. For there is, patient reportsno awakening with chest pain. For there, patient reportshave been problems with concentration irritability __ __. For symptoms of, patient reportsleg restlessness are not experienced. For the patient reports, patient reportsno history of sleep paralysis hypnagogic hallucinations cataplexy. For restless sleep, patient reportshas been notedandand kicking at night has not been noted. For the patient, patient reportsdoes not consume alcoholandamount reported per day is(4). For the patient, patient reportsreports that he is a current cigarette smoker. For weight, patient reportsgain is reported. For other medical problems include, patient reportsnasal allergiesandnasal obstruction. For the patient reports that there, patient reportsis a family history of a sleep disorder.. JO ALMANZA MD, Juan Miguel VEGACSamPSam [facility] [id number] [address] [address] [address], [place], [address], [facility] 11/22/2014 14:48:15 07/19/2016 text/html Medication f/u. JO ALMANZA MD, Max VEGACSamC.P. [facility] [id number] [address] [facility], [place], [address], [facility] 07/19/2016 12:09:26
[2025-01-15 19:21] VITALS: BP 142/79; PULSE 88; RESP 18; TEMP 36.4; O2SAT 97
--- NOTE | 2025-01-15 19:30 | ED.SKABFB ---
HPI - Skin/Abscess/Foreign Bdy General Chief complaint: Skin/Abscess/Foreign Body Stated complaint: rash/hives patient presents to the [facility] accompanied by spouse complaints of rash to torso that began 3-5 days ago. Patient noted today the rash began to get very itchy which caused him to come in for evaluation. Patient noted taking Benadryl about 3-4 hours ago without any relief of symptoms. Patient denies any changes to lotion, body wash, clothes, laundry detergents, or anything that has come in contact with the area. Denies any history of allergic reactions or rashes. Patient does report taking Zyrtec daily. Denies rash anywhere else. Denies tongue swelling, lip swelling, shortness of breath, or drainage from the rash area. Related Data Home Medications ?Medication ?Instructions ?Recorded ?Confirmed ?Last Taken ?Type atorvastatin 40 mg tablet (Lipitor) 40 mg PO DAILY 07/25/22 11/11/24 Unknown History cetirizine 10 mg tablet (Zyrtec) 10 mg PO DAILY 07/25/22 11/11/24 Unknown History montelukast 10 mg tablet 10 mg PO DAILY 07/25/22 11/11/24 Unknown History (Singulair) omeprazole 40 mg capsule,delayed 40 mg PO BID 11/11/24 11/11/24 Unknown History release Allergies Allergy/AdvReac Type Severity Reaction Status Date / Time tramadol AdvReac Nausea and Verified 01/15/25 19:21 Vomiting Review of Systems Constitutional: Constitutional: Reports as per HPI, Denies chills, Denies fatigue, Denies fever(s) and Denies weakness Eyes: Eyes: Reports no additional eye complaints ENT: Reports system reviewed and no additional complaints, except as documented Cardiovascular: Cardiovascular: Reports no additional cardiovascular complaints Respiratory: Respiratory: Reports as per HPI, Denies chest congestion, Denies cough, Denies dyspnea and Denies wheezing Gastrointestinal: Gastrointestinal: Reports no additional gastrointestinal complaints Genitourinary: Genitourinary: Reports no additional male genitourinary complaints Musculoskeletal: Musculoskeletal: Reports no additional musculoskeletal complaints Integumentary/Breasts: Skin/Breast: Reports as per HPI, Reports pruritus, Denies erythema, Reports rash and Denies skin ulcer Neurologic: Reports as per HPI, Denies headache(s), Denies numbness and Denies weakness Psychiatric: Psychiatric: Reports no additional psychiatric complaints Endocrine: Endocrine: Reports no additional endocrine complaints Hematologic/Lymphatic: Hematologic/Lymphatic: Reports no additional hematologic/lymphatic complaints Allergic/Immunologic: Allergic/Immunologic: Reports as per HPI, Denies lip swelling, Denies throat swelling, Denies tongue swelling and Denies wheezing PMFSH Past Medical History Medical History (Updated 01/15/25 @ 19:33 by Bibiana Issa, PRODUCE BUYER, RING SPINNER-C) Hx of hemorrhoids Obesity (BMI 30.0-34.9) Left-sided chest pain Tobacco abuse Upper abdominal pain GERD (gastroesophageal reflux disease) Gastritis History of adenomatous polyp of colon Social History Social History Smoking status: Current every day smoker Exam Const: General: healthy appearing and no acute distress Nutritional Appearance: well nourished Orientation/consciousness: patient oriented x3 Limitations: no limitations HENMT: Head: normal to inspection Mouth: Yes Normal oral and palatal mucosa present, Yes lip normal and Yes moist mucous membranes Resp: Effort & Inspection: normal respiratory effort Auscultation: clear to auscultation bilaterally Cardio: Rate: regular rate Rhythm: regular rhythm Skin: General skin exam: normal color Rashes: rash noted Wounds: no wounds Other: Diffuse clustered papular rash noted over back, chest, and torso. No crusting or drainage noted. No vesicular or pustular lesions noted. Neuro: General: patient oriented x3 and moves all extremities Speech: normal speech Gait exam (Neuro): Normal gait present Extrem: General: normal to inspection, no clubbing, cyanosis or edema and no pedal edema Psych: Mental Status: mental status grossly normal Affect: normal affect Attitude: cooperative Course Course Level of Care: Express Care Visit Vital Signs Vital signs: Vital Signs Temperature 97.5 F L 01/15/25 19:21 Pulse Rate 88 01/15/25 19:21 Respiratory Rate 18 01/15/25 19:21 Blood Pressure 142/79 H 01/15/25 19:21 Pulse Oximetry 97 01/15/25 19:21 Oxygen Delivery Room Air 01/15/25 19:21 Temperature 97.5 F L 01/15/25 19:21 Pulse Rate 88 01/15/25 19:21 Respiratory Rate 18 01/15/25 19:21 Blood Pressure 142/79 H 01/15/25 19:21 Pulse Oximetry 97 01/15/25 19:21 Oxygen Delivery Room Air 01/15/25 19:21 MDM - Skin/Abscess/Foreign Bdy MDM Narrative Medical decision making narrative: Spoke with patient noted the cause of the rash is likely something is skin came in contact with due to the presentation rash. No cold-like symptoms noted no pain noted or any drainage/ crusting to the area. The patient was evaluated by myself in the express care. History is obtained from patient who is an independent historian and physical exam was performed. Available medical records were reviewed at this time. Exam findings show no acute concerns or changes; patient is non-toxic appearing and is in no distress. Patient is appropriate for outpatient treatment and follow-up. I have evaluated and discussed social determinants of health with the patient that could potentially impact subsequent diagnosis and treatment plans. Differential diagnosis and treatment plan were discussed with the patient. Patient agrees with discussion and after shared medical decision making agrees with plan of care. All questions were answered to the patient's satisfaction. Differential Diagnosis Differential diagnosis: Likely viral exanthem, urticaria, cellulitis, eczema and contact dermatitis Medical Records Attestation: I reviewed the patient's medical records. Discharge Plan Discharge Clinical Impression: Contact dermatitis Patient Disposition: Home Condition: Stable Instructions: Antibiotic Form, Contact Dermatitis (ED), Cold Compress or Soak (ED) Additional Instructions: The most important part of your care is follow up with Primary care provider. Take Pepcid 20mg daily for 7 days Take the steroids starting tomorrow take as directed. can increase intake 2 of your Zyrtec daily. Avoid hot showers, Take cool showers. Apply a good moisturizing lotion to the skin. Return to the ER for new or worsening symptoms such as shortness of breath, tongue swelling, lip swelling. Patient Language: Hungarian Prescriptions: New methylprednisolone [Medrol (Jose G)] 4 mg tablets,dose pack See Rx Instructions .ROUTE .COMPLEX Qty: 21 0RF Rx Instructions: for 6 days No Action atorvastatin [Lipitor] 40 mg tablet 40 mg PO DAILY cetirizine [Zyrtec] 10 mg tablet 10 mg PO DAILY montelukast [Singulair] 10 mg tablet 10 mg PO DAILY omeprazole 40 mg capsule,delayed release(DR/EC) 40 mg PO BID Follow-up/Referrals: UNKNOWN,DOCTOR [Primary Care Provider] Time of Disposition: 19:33
== END 2025-01-15 19:42 | disposition home or self-care (01) ==
PROVIDERS: Emergency Provider Nurse Practitioner Family
DX: L25.9 Unspecified contact dermatitis, unspecified cause (principal); F17.200 Nicotine dependence, unspecified, uncomplicated; K21.9 Gastro-esophageal reflux disease without esophagitis; E66.9 Obesity, unspecified; Z68.30 Body mass index [BMI] 30.0-30.9, adult
CPT/HCPCS: 99213; G0463; J7512

== ENCOUNTER 2025-02-08 12:16 | Emergency (ER) | payer OTHER, SELFPAY ==
--- NOTE | 2025-02-08 12:20 | ED.URI ---
HPI - URI/Sore Throat General Chief Complaint: Upper Respiratory Infection Stated Complaint: sinus Source: patient and RN notes reviewed Mode of arrival: ambulatory Limitations: no limitations History of Present Illness HPI Narrative: Patient is a 49-year-old male who presents to the [facility] complaints sinus pain and pressure to 10 days. Patient states that his symptoms continued to worsen. He endorses nasal congestion and drainage. States that he had an infrequent nonproductive cough for few days which has resolved. He denies chest pain or shortness of breath. Reports sinus headache. Denies recent fevers. Patient has taken Sudafed, Mucinex, and Flonase at home without much relief. Related Data Home Medications ?Medication ?Instructions ?Recorded ?Confirmed ?Last Taken ?Type atorvastatin 40 mg tablet (Lipitor) 40 mg PO DAILY 07/25/22 01/28/25 Unknown History cetirizine 10 mg tablet (Zyrtec) 10 mg PO DAILY 07/25/22 01/28/25 Unknown History montelukast 10 mg tablet 10 mg PO DAILY 07/25/22 01/28/25 Unknown History (Singulair) omeprazole 40 mg capsule,delayed 40 mg PO BID 11/11/24 01/28/25 Unknown History release famotidine 20 mg tablet (Acid 20 mg PO BID 01/28/25 01/28/25 Unknown History Controller) Allergies Allergy/AdvReac Type Severity Reaction Status Date / Time tramadol AdvReac Intermediate Nausea and Verified 02/08/25 12:21 Vomiting Review of Systems Review of Systems: CONSTITUTIONAL: Denies fever, chills, or sweats. EYES: Denies visual changes, redness, or discharge. ENT: Denies otalgia and sore throat. Reports nasal congestion and sinus pain. CARDIOVASCULAR: Denies chest pain, palpitations, or edema. RESPIRATORY: Denies cough or dyspnea. GASTROINTESTINAL: Denies abdominal pain, nausea, vomiting, or diarrhea. GENITOURINARY: Denies dysuria or hematuria. SKIN: Denies rash or itching. MUSCULOSKELETAL: Denies back pain, joint pain, or myalgia. NEUROLOGIC: Reports headache but denies numbness or weakness. Pertinent positives per HPI. [facility] Past Medical History Medical History Hx of hemorrhoids Obesity (BMI 30.0-34.9) Left-sided chest pain Tobacco abuse Upper abdominal pain GERD (gastroesophageal reflux disease) Gastritis History of adenomatous polyp of colon Social History Social History Smoking packs per day: 0.5 Smoking cigarettes per day: 10.0 Years smoked: 25 Smoking pack-years: 12.50 Smoking status: Former smoker Tobacco type: cigarettes Alcohol intake: never Drinks per week: 2 Substance use: never Substance use type: does not use Living arrangements: with family Spiritual care concerns: No Comments At the time of my signature, I reviewed and agree with the nursing past medical, surgical, social, and family history. There is no relevant family history pertinent to the patient complaint. Exam Narrative: GENERAL: This is a well-nourished, well-developed patient, in no apparent distress. HEAD: normocephalic, atraumatic. EYES: Sclera clear/white. Vision is grossly intact. EARS: External ears normal. Hearing grossly intact. NOSE: External nose normal. Nasal congestion. Sinus tenderness. THROAT: Mucous membranes moist, oropharyngeal erythema. NECK: Neck supple, non-tender without lymphadenopathy, masses or thyromegaly. CARDIOVASCULAR: Regular rate and rhythm without murmurs, gallops, or rubs. RESPIRATORY: Clear to auscultation. Breath sounds equal bilaterally. No wheezes, rales, or rhonchi. GASTROINTESTINAL: Abdomen soft, non-tender, nondistended. Bowel sounds are active. No hepato-splenomegaly, or palpable masses. No guarding. SKIN: warm, intact with no suspicious lesions or rash, good texture and turgor. NEURO: awake, alert, and oriented to person, place and time. There were no obvious focal neurologic abnormalities. Course Course Level of Care: Express Care Visit Vital Signs Vital signs: Vital Signs Temperature 97.7 F 02/08/25 12: Pulse Rate 90 02/08/25 12:26 Respiratory Rate 18 02/08/25 12: Blood Pressure 131/92 H 02/08/25 12:26 Pulse Oximetry 97 02/08/25 12:26 Oxygen Delivery Room Air 02/08/25 12:26 Temperature 97.7 F 02/08/25 12:26 Pulse Rate 90 02/08/25 12:26 Respiratory Rate 18 12/16/25 12:26 Blood Pressure 131/92 H 02/08/25 12:26 Pulse Oximetry 97 02/08/25 12:26 Oxygen Delivery Room Air 02/08/25 12:26 Reviewed MDM MDM Narrative Medical decision making narrative: Go to the ER for any new or worsening symptoms. Avoid smoking/second-hand smoke. Continue to take Tylenol or Motrin for pain. Increase your Vitamin C intake. Use a humidifier or vaporizer at night. Take Medications as prescribed. Drink plenty of water. 8-10 glasses per day. Use flonase 2 times per day for 5 days then as needed Take mucinex 2 times per day and be sure to take with 8oz of water. Follow up with Primary provider if not getting better. Differential Diagnosis Differential Diagnosis: sinusitis, upper respitatory infection, strep, pharyngitis Critical Care Time Critical Care Time Critical Care Time: No Discharge Plan Discharge Clinical Impression: Sinusitis Qualifiers: Sinusitis location: unspecified location Chronicity: acute Recurrence: non-recurrent Qualified Code(s): J01.90 - Acute sinusitis, unspecified Patient Disposition: Home Condition: Stable Instructions: Antibiotic Form, Sinusitis (ED) Additional Instructions: Go to the ER for any new or worsening symptoms. Avoid smoking/second-hand smoke. Continue to take Tylenol or Motrin for pain. Increase your Vitamin C intake. Use a humidifier or vaporizer at night. Take Medications as prescribed. Drink plenty of water. 8-10 glasses per day. Use flonase 2 times per day for 5 days then as needed Take mucinex 2 times per day and be sure to take with 8oz of water. Follow up with Primary provider if not getting better. Patient Language: Qatari Prescriptions: New amoxicillin-pot clavulanate 875-125 mg tablet 1 tablet PO Q12H 10 Days Qty: 20 0RF No Action atorvastatin [Lipitor] 40 mg tablet 40 mg PO DAILY cetirizine [Zyrtec] 10 mg tablet 10 mg PO DAILY montelukast [Singulair] 10 mg tablet 10 mg PO DAILY omeprazole 40 mg capsule,delayed release(DR/EC) 40 mg PO BID famotidine [Acid Controller] 20 mg tablet 20 mg PO BID Follow-up/Referrals: PHYSICIAN NOT ON STAFF,NONSTAFF [Primary Care Provider] Stand Alone Forms: Work/School Release IP Time of Disposition: 12:35
[2025-02-08 12:26] VITALS: BP 131/92; PULSE 90; RESP 18; TEMP 36.5; O2SAT 97
--- OUTSIDE RECORDS SUMMARY | 2025-02-08 14:18 | XMS_ITS | Clinical Summary ---
Author Organization [facility] Address [address] [facility] [address] Care Team Providers Care Floor Care Specialist Name Role Phone Man Barry PA-C Primary Care Provider [phone] Source Comments [facility] curated.by,non-owned Affiliates and Associated Physician Practices is amultiple site organization consisting of ambulatory clinics and hospital sitesin [place], [place] and [place]. This disclosure is being madepursuant to the Care Everywhere program and may not contain all information available regarding this patient. 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 Gender Identity Not on file Sexual Orientation Not on file Last Filed Vital Signs Vital Sign Reading Time Taken Comments Blood Pressure 129/80 01/28/2019 1:18 PM CUSTOMER ENERGY SPECIALIST Pulse 80 01/28/2019 1:18 PM CUSTOMER ENERGY SPECIALIST Temperature 36.4 C (97.5 F) 01/28/2019 1:18 PM CUSTOMER ENERGY SPECIALIST Respiratory Rate 16 01/28/2019 1:18 PM CUSTOMER ENERGY SPECIALIST Oxygen Saturation 99% 01/28/2019 1:18 PM CUSTOMER ENERGY SPECIALIST Inhaled Oxygen Concentration - - Weight 81.6 [...] to complete this topic Insurance Care Teams Floor Care Specialist Relationship Specialty Start Date End Date Man Barry PA-C [facility] [place] [address] PCP - General 05/25/15
--- OUTSIDE RECORDS SUMMARY | 2025-02-08 14:18 | XMS_ITS | Clinical Summary ---
Author Organization [facility] Address [facility] [place] [address] Care Team Providers Care Drill Operator Automatic Name Role Phone Darrick Rodriguez MD Primary Care Provider [phone] Allergies Active Allergy Reactions Criticality Noted Date [...] to complete this topic Insurance Care Teams Drill Operator Automatic Relationship Specialty Start Date End Date Darrick Rodriguez MD [address] [id number] PCP - General FAMILY PRACTICE 05/02/21
--- OUTSIDE RECORDS SUMMARY | 2025-02-08 14:18 | XMS_ITS | Clinical Summary ---
Author Organization [facility] Address [address] [place] [address] Care Team Providers Care Marine Fuel Dock Attendant Name Role Phone [facility] Primary Care Provider [phone] Andrew Cortez MD Unavailable [phone] Allergies Active Allergy Reactions Criticality Noted Date [...] on file Legal Sex Male 8:33 PM VAMP LINER Gender Identity Not on file Sexual Orientation Not on file Last Filed Vital Signs Vital Sign Reading Time Taken Comments Blood Pressure 136/90 01/27/2024 2:55 PM VAMP LINER Pulse 94 01/27/2024 2:55 PM VAMP LINER Temperature 37 C (98.6 F) 01/27/2024 2:25 PM VAMP LINER Respiratory Rate 16 01/27/2024 2:55 PM VAMP LINER Oxygen Saturation 95% 01/27/2024 2:55 PM VAMP LINER Inhaled Oxygen Concentration - - Weight 103.4 kg (228 lb) 04/21/2024 1:37 PM VAMP LINER Height 180.3 cm (5' 11) 04/21/2024 1:37 PM VAMP LINER Body Mass Index 31.8 04/21/2024 1:37 PM VAMP LINER Plan of Treatment Health Maintenance Due Date [...] 06/27/2009, 05/25/2009 Medical Devices Implanted Type Area Senior Business Broker Device Identifier Shelf Expiration Date Model / Serial / Lot [employer] Graft Ligament Patella Regn Knee Frozen [id number] - [id number] - [id number] Implanted:Qty: 1 on 01/27/2024 by Andrew Cortez MD at [facility] [employer] 11/25/2028 [id number] / [id number] / [id number] [employer] 8mm 20mm Cannulated Sheath Acl Pcl Screw Interference Titanium Ar-[id number] - [id number] Implanted:Qty: 1 on 01/27/2024 by Andrew Cortez MD at [facility] Right: Knee [employer] [id number] 06/23/2028 [id number] / / [id number] [employer] Bio-Interference 9mm 20mm Cannulated Acl Pcl Screw Interference Ar-[id number] - [id number] Implanted:Qty: 1 on 01/27/2024 by Andrew Cortez MD at [facility] Right: Knee [employer] [id number] 04/23/2028 [id number] / / [id number] Insurance [facility] Care Teams Marine Fuel Dock Attendant Relationship Specialty Start Date End Date [facility] [address] [place] [address] PCP - General 12/31/23 Andrew Cortez MD [address] [place] [address] Consulting Physician Orthopedic Surgery 01/27/24
--- OUTSIDE RECORDS SUMMARY | 2025-02-08 14:18 | XMS_ITS | Encounter Summary ---
Author Organization [facility] Address [address] [facility] [place] [address] Care Team Providers Care Claim Auditor Name Role Phone Man Barry PA-C Primary Care Provider [phone] Encounter Details Date Type Department Care Team (Late st Contact Info) Description 07/03/2023 Lab Requisition [facility] - DermPath Lab [address] [place] [id number] Sb Verduzco MD [address] [place] [address] Social History Tobacco Use Types Packs/Day Years Used Date Smoking Tobacco: Every Day Cigarettes Smokeless Tobacco: Never Alcohol Use Standard Drinks/Week Comments Yes 1.7 (1 standard drink = 0.6 oz p ure alcohol) Sex and Gender Information Value Date Recorded Sex Assigned at Not on file Legal Sex Male 5:52 PM RETOUCHER PHOTOENGRAVING Gender Identity Not on file Sexual Orientation Not on file documented as of this encounter Plan of Treatment Not on file documented as of this encounter Procedures Procedure Name Priority Date/Time Associated Diagnosis Comments DERMATOPATHOLOGY Routine 07/01/2023 12:0 0 AM CDT documented in this encounter Results * DERMATOPATHOLOGY (07/01/2023 12:00 AM CDT) Case Report Dermatopathology Report Case: [id number] Authorizing Provider: Sb Verduzco MD Collected: 07/01/2023 12:00 AM Ordering Location: [facility] - Received: 07/03/2023 10:58 AM [...] characteristic determined by the Dermatopathology Laboratory at [facility], directed by Dr. Gianluca Hammond. These tests need not be, and therefore are not, approved by the [place] Food and Drug Administration. The tests are used for clinical purposes. Billing Codes Specimen Charges Stain Charges 49431 1 2:12 PM CDT DERMATOPATHOLOGY LABORATORY Embedded Images 2:12 PM CDT DERMATOPATHOLOGY LABORATORY Pathology/Cytolog y TISSUE SPECIMEN FROM SKIN / Unknown 07/01/2023 07/03/2023 10:58 AM CDT us Sb Verduzco MD LAB - PATHOLOGY/CYTOLOGY ORDERAB LES Final Result DERMATOPATHOLOGY LABORATORY [facility] - Department of Dermatology [address] [place] [address], [facility] [phone] documented in this encounter Visit Diagnoses Not on filedocumented in this encounter Care Teams Claim Auditor Relationship Specialty Start Date End Date Man Barry PA-C [address] [place] [address] [place] [address] PCP - General 05/25/15 documented as of this encounter
== END 2025-02-08 12:36 | disposition home or self-care (01) ==
PROVIDERS: Emergency Provider Nurse Practitioner
DX: J01.90 Acute sinusitis, unspecified (principal); K21.9 Gastro-esophageal reflux disease without esophagitis; E66.9 Obesity, unspecified; Z68.30 Body mass index [BMI] 30.0-30.9, adult; Z87.891 Personal history of nicotine dependence
CPT/HCPCS: 99213; G0463